=== PATIENT | male | born 1950 | race Caucasian/White ===

== ENCOUNTER 2024-06-28 11:30 | Emergency (ER) | payer OTHER, MEDICARE ==
[~2024-06-28] VITALS: Ht 177.8 cm; Wt 105.2 kg
[2024-06-28] MEDS ORDERED: ACET650T61 PO (11:38)
[2024-06-28] MEDS ORDERED: DICL100T89 PO (11:38)
[2024-06-28] MEDS ORDERED: KETO10TAB PO (13:15)
[2024-06-28 13:21] VITALS: BP 124/73; TEMP 96.9; O2SAT 94
== END 2024-06-28 13:32 | disposition home or self-care (01) ==
LOC: M ED 11:30
DX: S39.012A Strain of muscle, fascia and tendon of lower back, initial encounter (principal); X50.0XXA Overexertion from strenuous movement or load, initial encounter; I10 Essential (primary) hypertension; E78.5 Hyperlipidemia, unspecified; K21.9 Gastro-esophageal reflux disease without esophagitis; E11.9 Type 2 diabetes mellitus without complications; Z96.643 Presence of artificial hip joint, bilateral; Z90.89 Acquired absence of other organs; Z79.1 Long term (current) use of non-steroidal anti-inflammatories (NSAID); Z79.899 Other long term (current) drug therapy; Y92.9 Unspecified place or not applicable; Y93.89 Activity, other specified; Y99.9 Unspecified external cause status